=== PATIENT | male | born 1950 | race Caucasian/White ===

== ENCOUNTER 2021-08-07 09:14 | Emergency (ER) | payer OTHER ==
[2021-08-07 10:32] LABS: HEMOGLOBIN 13.1 gm/dl (14.0-17.5); RED BLOOD COUNT 4.66 M/UL (4.20-5.50); WHITE BLOOD COUNT 7.8 K/UL (4.5-11.0)
[2021-08-07 10:52] LABS: BUN/CREATININE RATIO 13 (0-10)
== END 2021-08-07 14:29 | disposition left against medical advice (07) ==
LOC: ER1 09:14
PROVIDERS: Nurse Practitioner
DX: R07.9 Chest pain, unspecified (principal); I11.9 Hypertensive heart disease without heart failure; Z79.82 Long term (current) use of aspirin; Z79.899 Other long term (current) drug therapy; Z20.822 Contact with and (suspected) exposure to COVID-19
CPT/HCPCS: ECHO; 0240U; 71045; 80053; 81001; 82150; 82550; 82553; 83690; 84484; 85025; 85379; 85652; 93005; 93306; 99284; Q9967